=== PATIENT | female | born 1980 | race Caucasian/White ===

== ENCOUNTER 2018-01-09 05:30 | Day surgery (SDC) | payer OTHER | END 2018-01-09 10:05 | disposition home or self-care (01) | LOC: CIR.AMB 05:30 | DX: D12.4 Benign neoplasm of descending colon (principal); K64.2 Third degree hemorrhoids ==

== ENCOUNTER 2020-04-07 09:17 | Day surgery (SDC) | payer OTHER | END 2020-04-07 16:15 | disposition home or self-care (01) | LOC: AMB-ENDOS 09:17 | PROVIDERS: ATTEND Colon & Rectal Surgery | DX: K62.89 Other specified diseases of anus and rectum (principal); Z20.828 Contact with and (suspected) exposure to other viral communicable diseases; K64.2 Third degree hemorrhoids ==